=== PATIENT | female | born 1955 | race Caucasian/White ===

== ENCOUNTER → 2017-10-26 | Outpatient (CLI) | payer OTHER, MEDICARE ==
--- NOTE | 2017-10-28 06:44 | MM ---
Reason for exam: screening (asymptomatic). Last mammogram was performed 3 years and 3 months ago. History: Patient is postmenopausal. Benign US right guided VAD of the right breast, November 08, 2009. Took estrogen for 2 years. Physical Findings: A clinical breast exam by your physician is recommended on an annual basis and results should be correlated with mammographic findings. MG 3D Screening Mammo W/Cad Bilateral CC and MLO view(s) were taken. Prior study comparison: July 12, 2014, bilateral MG screening mammo w CAD. July 15, 2012, bilateral digital screening mammo w/CAD. There are scattered fibroglandular densities. There are oval, circumscribed masses in the left lower inner quadrant stable back to 2013. No suspicious abnormality. No significant changes when compared with prior studies. ASSESSMENT: Benign, BI-RAD 2 RECOMMENDATION: Routine screening mammogram of both breasts in 1 year.
== END | disposition home or self-care (01) ==
LOC: RADMAMWWP 14:34
PROVIDERS: ATTEND Family Medicine
DX: Z12.31 Encounter for screening mammogram for malignant neoplasm of breast (principal)
CPT/HCPCS: 77063; 77067

== ENCOUNTER 2018-05-07 10:24 | Emergency (ER) | payer OTHER, MEDICARE ==
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
--- NOTE | 2018-05-07 12:06 | XR ---
EXAMINATION TYPE: XR chest 1V DATE OF EXAM: 05/07/2018 COMPARISON: 09/12/2014 HISTORY: Chest pain TECHNIQUE: Single frontal view of the chest is obtained. FINDINGS: There is no focal air space opacity, pleural effusion, or pneumothorax seen. The cardiac silhouette size is within normal limits. The osseous structures are intact. Compression deformity s een on the prior exam of 2013 and the upper thoracic spine are not well visualized on this frontal vi ew only. Moderate multilevel degenerative changes of the thoracic spine are partially visualized. IMPRESSION: No acute cardiopulmonary process.
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
[2018-05-07 13:00] VITALS: BP 156/67; PULSE 64; RESP 15; TEMP 97.9
== END 2018-05-07 13:00 | disposition home or self-care (01) ==
LOC: EC 10:24
DX: S16.1XXA Strain of muscle, fascia and tendon at neck level, initial encounter (principal); S09.90XA Unspecified injury of head, initial encounter; M25.512 Pain in left shoulder; M79.7 Fibromyalgia; K21.9 Gastro-esophageal reflux disease without esophagitis; E78.5 Hyperlipidemia, unspecified; I10 Essential (primary) hypertension; M19.90 Unspecified osteoarthritis, unspecified site; F41.9 Anxiety disorder, unspecified; Z79.899 Other long term (current) drug therapy; V89.2XXA Person injured in unspecified motor-vehicle accident, traffic, initial encounter; Y92.410 Unspecified street and highway as the place of occurrence of the external cause
CPT/HCPCS: 70450; 71045; 72125; 99284

== ENCOUNTER 2018-05-09 20:50 | Emergency (ER) | payer MEDICARE, OTHER ==
[2018-05-09] MEDS ORDERED: fentaNYL (PF) 50 MCG/ML 2 ML AMP IV STA (21:20)
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
[2018-05-09 21:57] LABS: Basophils % (A) 1 %; Eosinophils # (A) 0.3 k/uL (0-0.7); Eosinophils % (A) 4 %; HCT 37.7 % (34.0-46.0); Lymphocytes # (A) 1.4 k/uL (1.0-4.8); Lymphocytes % (A) 20 %; MCH 25.4 pg (25.0-35.0); MCHC 31.8 g/dL (31.0-37.0); MCV 79.8 fL (80.0-100.0); Mean Platelet Volume 6.7; Monocytes # (A) 0.5 k/uL (0-1.0); Monocytes % (A) 7 %; Neutrophils # (A) 4.8 k/uL (1.3-7.7); Neutrophils % (A) 67 %; Platelet Count 293 k/uL (150-450); RBC 4.72 m/uL (3.80-5.40); RDW 14.1 % (11.5-15.5); WBC 7.2 k/uL (3.8-10.6)
[2018-05-09 22:07] LABS: ALT 32 U/L (9-52); AST 26 U/L (14-36); Albumin 4.2 g/dL (3.5-5.0); Alkaline Phosphatase 98 U/L (38-126); Anion Gap 7 mmol/L; Blood Urea Nitrogen 16 mg/dL (7-17); Calcium 9.4 mg/dL (8.4-10.2); Carbon Dioxide 24 mmol/L (22-30); Chloride 108 mmol/L (98-107); Glucose 98 mg/dL (74-99); Potassium 4.3 mmol/L (3.5-5.1); Sodium 139 mmol/L (137-145); Total Bilirubin 0.2 mg/dL (0.2-1.3); Total Protein 6.6 g/dL (6.3-8.2)
[2018-05-09 22:15] LABS: Creatine Kinase 72 U/L (30-135)
--- NOTE | 2018-05-09 22:15 | XR ---
EXAMINATION TYPE: XR chest 2V DATE OF EXAM: 05/09/2018 COMPARISON: Chest radiograph 05/07/2018 HISTORY: Cough TECHNIQUE: Frontal and lateral views of the chest are obtained. FINDINGS: There is no focal air space opacity, pleural effusion, or pneumothorax seen. The cardiac silhouette size is within normal limits. The osseous structures are unchanged. Exaggerated kyphosis of the thoracic spine with multiple compression deformities are stable. IMPRESSION: No acute cardiopulmonary process and no significant interval change.
--- NOTE | 2018-05-09 22:19 | XR ---
EXAMINATION TYPE: XR wrist complete RT DATE OF EXAM: 05/09/2018 COMPARISON: NONE HISTORY: Pain after falling TECHNIQUE: 4 views FINDINGS: There is impacted comminuted transverse fracture of the distal radial metaphysis. There is no dislocation. There is soft tissue swelling around the wrist joint. There is moderate osteoarthriti s at the first carpometacarpal joint. IMPRESSION: Acute impacted distal radius fracture.
[2018-05-09 22:28] LABS: Creatine Kinase MB 1.1 ng/mL (0.0-2.4); Troponin I <0.012 ng/mL (0.000-0.034)
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
[2018-05-10 00:04] LABS: Appearance,Urine Clear (Clear); Bilirubin,Urine Negative (Negative); Blood,Urine Negative (Negative); Color,Urine Colorless; Glucose,Urine (UA) Negative (Negative); Ketones,Urine Negative (Negative); Leukocyte Esterase,Urine Moderate (Negative); Mucus,Urine Rare /hpf; Nitrite,Urine Negative (Negative); Protein,Urine Negative (Negative); Specific Gravity,Urine 1.007 (1.001-1.035); Squamous Epithelial Cell,Urine <1 /hpf (0-4); Urobilinogen,Urine <2.0 mg/dL (<2.0); WBC,Urine 2 /hpf (0-5)
[2018-05-10 00:12] VITALS: BP 133/60; PULSE 68; RESP 18; TEMP 97.5
--- NOTE | 2018-05-12 03:54 | CDI ---
Documentation Clarification OP Dear Dr. Дмитрий Cheney Please provide type of splint. Thank you, Stephie Barry Shank Cutter If you have any questions, please contact Yardmaster at [phone] [facility]
== END 2018-05-10 00:21 | disposition home or self-care (01) ==
LOC: EC 20:50
DX: S62.101A Fracture of unspecified carpal bone, right wrist, initial encounter for closed fracture (principal); R40.2412 Glasgow coma scale score 13-15, at arrival to emergency department; M79.7 Fibromyalgia; K21.9 Gastro-esophageal reflux disease without esophagitis; E78.5 Hyperlipidemia, unspecified; I10 Essential (primary) hypertension; M19.90 Unspecified osteoarthritis, unspecified site; F41.9 Anxiety disorder, unspecified; Z79.1 Long term (current) use of non-steroidal anti-inflammatories (NSAID); Z79.899 Other long term (current) drug therapy; Z53.29 Procedure and treatment not carried out because of patient's decision for other reasons; W10.9XXA Fall (on) (from) unspecified stairs and steps, initial encounter; Y93.01 Activity, walking, marching and hiking; Y92.009 Unspecified place in unspecified non-institutional (private) residence as the place of occurrence of the external cause
CPT/HCPCS: 99284 ×2; 29125 ×2; 96374 ×2; 36415; 93005; 80053; 82550; 82553; 83735; 84484; 85025; 81001; 73110; 71046; 70450; J3010

== ENCOUNTER → 2023-01-27 | Outpatient (CLI) | payer MEDICARE ==
--- NOTE | 2023-01-28 15:00 | MM ---
Reason for Exam: Screening (asymptomatic). Last mammogram was performed 5 year(s) and 3 month(s) ago. Patient History: Menarche at age 12. First Full-Term at age 20. Left ovary removed at age 44. Right ovary removed at age 44. Hysterectomy at age 44. Postmenopausal. Patient used Estrogen for 2 years. 11/08/2009, Benign Core Biopsy on the right side. Risk Values: [place] 5 year model risk: 1.8%. NCI Lifetime model risk: 5.6%. Prior Study Comparison: 07/15/2012 Bilateral Screening Mammogram, [facility]. 07/12/2014 Bilateral Screening Mammogram, [facility]. 10/26/2017 Bilateral Screening Mammogram, [facility]. Tissue Density: There are scattered fibroglandular densities. Findings: Analyzed By CAD. Pattern appears symmetrical and stable. Core markers within the right breast. No significant interval changes are evident No suspicious groups of microcalcifications, spiculated or lobular masses, architectural distortion or other secondary signs of malignancy are mammographically apparent. Overall Assessment: Benign, BI-RAD 2 Management: Screening Mammogram of both breasts in 1 year. A negative mammogram report should not preclude additional follow up of suspicious palpable abnormalities. Patient should continue monthly self breast exam. A clinical breast exam by your physician is recommended on an annual basis and results should be correlated with mammographic findings. Electronically signed and approved by: Keo Vivas D.O. Radiologis
== END | disposition home or self-care (01) ==
LOC: RADMAMWWP 13:04
PROVIDERS: ATTEND Family Medicine
DX: Z12.31 Encounter for screening mammogram for malignant neoplasm of breast (principal); R07.9 Chest pain, unspecified; R06.09 Other forms of dyspnea; Z78.0 Asymptomatic menopausal state
CPT/HCPCS: 77063; 77067

== ENCOUNTER 2023-04-10 12:53 | Inpatient (IN) | payer MEDICARE ==
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
[2023-04-10 14:23] LABS: Basophils % (A) 1 %; Eosinophils # (A) 0.2 k/uL (0-0.7); Eosinophils % (A) 3 %; HCT 44.1 % (34.0-46.0); HGB 14.3 gm/dL (11.4-16.0); Lymphocytes # (A) 1.4 k/uL (1.0-4.8); Lymphocytes % (A) 22 %; MCH 27.7 pg (25.0-35.0); MCHC 32.5 g/dL (31.0-37.0); MCV 85.2 fL (80.0-100.0); Mean Platelet Volume 7.7; Monocytes # (A) 0.4 k/uL (0-1.0); Monocytes % (A) 7 %; Neutrophils # (A) 4.2 k/uL (1.3-7.7); Neutrophils % (A) 67 %; Platelet Count 304 k/uL (150-450); RBC 5.17 m/uL (3.80-5.40); WBC 6.3 k/uL (3.8-10.6)
[2023-04-10 14:30] LABS: INR 0.9 (<1.2); Partial Thromboplastin Time 23.5 sec (22.0-30.0); Prothrombin Time 9.9 sec (9.0-12.0)
--- NOTE | 2023-04-10 14:39 | XR ---
EXAMINATION TYPE: XR chest 2V DATE OF EXAM: 04/10/2023 COMPARISON: Chest x-ray May 09, 2018 HISTORY: AMS and weakness. TECHNIQUE: Frontal and lateral views of the chest are obtained. FINDINGS: There is some chronic parenchymal change without suspicious focal air space opacity, pleur al effusion, or pneumothorax seen. The cardiac silhouette size is within normal limits. The osseou s structures are demineralized. Exaggerated thoracic kyphosis is redemonstrated. IMPRESSION: No acute process. No significant change from prior.
[2023-04-10 14:43] LABS: ALT 31 U/L (4-34); AST 37 U/L (14-36); African American GFR (CKD) >90 (>60 ml/min/1.73 sqM); Albumin 4.7 g/dL (3.5-5.0); Alkaline Phosphatase 106 U/L (38-126); Anion Gap 9 mmol/L; Blood Urea Nitrogen 11 mg/dL (7-17); Calcium 9.5 mg/dL (8.4-10.2); Carbon Dioxide 25 mmol/L (22-30); Chloride 104 mmol/L (98-107); Creatine Kinase 95 U/L (30-135); Glucose 148 mg/dL (74-99); Non-African American GFR(CKD) >90 (>60 ml/min/1.73 sqM); Potassium 4.1 mmol/L (3.5-5.1); Sodium 138 mmol/L (137-145); Total Bilirubin 0.7 mg/dL (0.2-1.3); Total Protein 7.5 g/dL (6.3-8.2)
[2023-04-10] MEDS ORDERED: METOCLOPRAMIDE 5 MG/ML 2 ML VIAL IVP STA (14:49)
[2023-04-10] MEDS ORDERED: diphenhydrAMINE 50 MG/ML 1 ML VIAL IVP STA (14:49)
--- NOTE | 2023-04-10 15:16 | CT ---
EXAMINATION TYPE: CT brain wo con DATE OF EXAM: 04/10/2023 COMPARISON: 05/09/2018 INDICATION: Left sided arm numbness, vision changes and headache x3 days. DLP: 1146.6 mGycm, Automated exposure control for dose reduction was used. CONTRAST: None CT of the brain is performed utilizing 3 mm thick sections through the posterior fossa and 3 mm thick sections through the remaining calvarium. Study is performed within 24 hours of arrival to the hosp ital. No abnormal hyperdensity is present to suggest an acute intracranial hemorrhage. No mass lesion is evident. There is hypodensity adjacent to the occipital horn of the right lateral ventricle within the medial aspect of the right occipital lobe. Findings could be compatible with an acute to subacute infarct. R nandini was called to the emergency room by Dr. Vivas by telephone at the time of interpretation. Ventricles and sulci are prominent for the patient age. Geminal plate and ambient cistern are patent. No midline shift is evident. No temporal horn dilatation is evident. Paranasal sinuses and mastoid air cells within the [id number] are clear. IMPRESSIONS: 1. Acute medial right occipital lobe infarct.
--- NOTE | 2023-04-10 15:25 | CT ---
EXAMINATION TYPE: CT angio head neck DATE OF EXAM: 04/10/2023 HISTORY: Left sided arm numbness, vision changes and headache x3 days. COMPARISON: None CT DLP: 433.9 mGycm. Automated Exposure Control for Dose Reduction was Utilized. TECHNIQUE: CTA scan of the neck is performed with IV Contrast, patient injected with 65ml mL of Isov ue 370, axial images are obtained, coronal and sagittal reformatted images are reviewed. Three-D ewelina nstructed images are created on an independent workstation and reviewed. Source images are reviewed. FINDINGS: Carotid/Vascular Structures: There is a three-vessel arch. Left vertebral artery is dominant. Interna l carotid arteries are patent to the skull base. Vertebral arteries are patent to the skull base. Fabian cification is at the carotid bifurcations without significant flow-limiting stenosis. Cervical of [place]: Vertebral basilar system appears normal. Posterior cerebral vasculature is unrema rkable. No abrupt cut off of vessels to the right occipital lobe are identified. Left bifurcate viola lly into A1 and M1 segments. Right A1 segment is not identified on reconstructed images. Right A1 seg ment is not identified on source images. A2 segments are normal. The anterior communicating artery is patent. Posterior communicating arteries are not identified. IMPRESSION: 1. No flow-limiting stenosis bilateral carotid bifurcations. 2. Normal variation in the kiana of [place]. The right A1 segment is absent. 3. No abrupt cut off to the right occipital lobe is identified. NASCET criteria was used in interpretation of this exam?
[2023-04-10] MEDS ORDERED: ATORVASTATIN 80 MG TAB PO STA (15:43)
[2023-04-10] MEDS ORDERED: ASPIRIN 325 MG TAB PO STA (15:43)
[2023-04-10 17:04] LABS: Appearance,Urine Clear (Clear); Bilirubin,Urine Negative (Negative); Blood,Urine Negative (Negative); Color,Urine Light Yellow; Glucose,Urine (UA) Negative (Negative); Ketones,Urine Negative (Negative); Leukocyte Esterase,Urine Negative (Negative); Nitrite,Urine Negative (Negative); PH, Urine 6.5 (5.0-8.0); Protein,Urine Negative (Negative); Urobilinogen,Urine <2.0 mg/dL (<2.0)
[2023-04-10 17:22] LABS: Specific Gravity,Urine 1.049 (1.001-1.035)
[2023-04-10] MEDS: CLOPIDOGREL 75 MG TAB PO SCH (20:34)
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
[2023-04-10] MEDS: HYDROcodone/APAP 10-325MG 1 EACH TAB PO PRN (21:17)
[2023-04-10] MEDS: GABAPENTIN 300 MG CAP PO SCH (21:17)
[2023-04-10] MEDS: CYCLOBENZAPRINE 10 MG TAB PO SCH (21:24)
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
[2023-04-11] MEDS: ATORVASTATIN 40 MG TAB PO SCH (10:05)
[2023-04-11] MEDS: GABAPENTIN 300 MG CAP PO SCH ×3 (10:05→21:02)
[2023-04-11] MEDS: CLOPIDOGREL 75 MG TAB PO SCH (10:05)
[2023-04-11] MEDS: amLODIPine 5 MG TAB PO SCH (10:05)
[2023-04-11] MEDS: ASPIRIN 325 MG TAB PO SCH (10:05)
[2023-04-11] MEDS: CYANOCOBALAMIN 500 MCG TAB PO SCH (10:05)
[2023-04-11] MEDS: LORATADINE 10 MG TAB PO SCH (10:06)
[2023-04-11] MEDS: MONTELUKAST 10 MG TAB PO SCH (10:06)
[2023-04-11] MEDS: HYDROcodone/APAP 10-325MG 1 EACH TAB PO PRN ×3 (10:06→23:20)
[2023-04-11 12:17] LABS: Chol/HDL Ratio 3.97 Ratio; LDL Cholesterol,Calculated 121.9 mg/dL (0.0-131.0)
--- NOTE | 2023-04-11 12:43 | CA ---
Transthoracic Echo Report Name: Dorie Joseph Age: 68 Gender: F : 1955 Exam Date: 04/11/2023 08:50 Exam Location: [facility] Ht (in): 61 Wt (lb): 168 Ordering Physician: Prabha Gan MD Attending/Referring Phys: Malik Armando;[id number] Social Services Designee Dinah Valdovinos RDCS Procedure CPT: Indications: acute CVA Cardiac Hx: Technical Quality: Good Contrast 1: Total Dose (mL): Contrast 2: Total Dose (mL): MEASUREMENTS (Male / Female) Normal Values 2D ECHO LV Diastolic Diameter PLAX 4.3 cm 4.2 - 5.9 / 3.9 - 5.3 cm LV Systolic Diameter PLAX 3.0 cm IVS Diastolic Thickness 1.0 cm 0.6 - 1.0 / 0.6 - 0.9 cm LVPW Diastolic Thickness 1.0 cm 0.6 - 1.0 / 0.6 - 0.9 cm LV Relative Wall Thickness 0.5 RV Internal Dim ED PLAX 2.9 cm LA Systolic Diameter LX 3.3 cm 3.0 - 4.0 / 2.7 - 3.8 cm LA Volume 51.4 cm??? 18 - 58 / 22 - 52 cm??? M-MODE Aortic Root Diameter MM 2.9 cm MV E Point Septal Separation 0.5 cm AV Cusp Separation MM 2.0 cm DOPPLER AV Peak Velocity 139.7 cm/s AV Peak Gradient 7.8 mmHg MV E' Velocity 7.3 cm/s TR Peak Velocity 241.4 cm/s TR Peak Gradient 23.3 mmHg Right Ventricular Systolic Press 28.3 mmHg FINDINGS Left Ventricle Left ventricular ejection fraction is estimated at 60-65 %. Left ventricular cavity size normal. Mildly increased septal wall thickness. Mildly increased posterior wall thickness. Right Ventricle Normal right ventricular size and function. Right ventricular systolic pressure within normal limits. Right Atrium Normal right atrial size. Left Atrium No evidence for an atrial septal defect. Normal left atrial size. Negative saline bubbles study Mitral Valve Structurally normal mitral valve. No mitral stenosis, regurgitation or prolapse. Aortic Valve Trileaflet aortic valve. No aortic valve stenosis or regurgitation. Tricuspid Valve Structurally normal tricuspid valve. Mild tricuspid regurgitation. Pulmonic Valve Pulmonic valve not well visualized. No pulmonic regurgitation. Pericardium Normal pericardium. No pericardial effusion. Aorta Normal size aortic root and proximal ascending aorta. CONCLUSIONS Normal LV systolic function Negative saline contrast study Previewed by: Dr. Tam Delcid MD (Electronically Signed) Final Date: 11 April 2023 12:42
[2023-04-11] MEDS: VENLAFAXINE HCL ER 150 MG CAP PO SCH (12:52)
--- NOTE | 2023-04-11 13:08 | P.PN ---
Subjective This is a pleasant 68 years old female with multiple medical history including COPD, Fibromyalgia, GERD/Reflux, Hyperlipidemia, Hypertension, Osteoarthritis , Anxiety Patient states she came because she had weakness in her left hand which just happened last Thursday about 4 days ago when she woke up her left hand was as she described and her left foot was numb lasted about 45 minutes and then went away, this was associated with blurry vision especially on the left side and headache. After 45 minutes the weakness and numbness in her left hand and foot resolved completely however a persistent about 5/10 in severity when she came in today compared to 10/10 in severity 4 days ago. His nonspecific and quality starts on the frontal part of the head and moves to the back, the pain is more towards the left side. Also she has pain and tenderness in both temporal areas more on the left side. Also she had some floaters around her left eye Vitals are stable and patient is afebrile She has unremarkable CBC, INR, BMP, liver enzymes. Except for mildly elevated glucose 148. EKG: Normal sinus rhythm at [address]-T changes CT of the brain: No acute process CTA of the brain"no flow-limiting stenosis or other significant abnormality In the emergency room patient received aspirin 325 mg, Lipitor and admitted with neurology consult We checked ESR was normal at 8 which goes against temporal arteritis. 04/11/2023 Patient today feels better, she stated that or her symptoms resolved except the vision difficulty in her left eye, she says that she cannot see or they're black spots on the left side of her left eye suspicious for homonymous hemianopsia. She denies headache, rule out temporal area tenderness. No more weakness or numbness in her left side. She is hemodynamically stable. Echocardiogram showing ejection fraction of 60-[address] of the brain showing acute medial right occipital lobe infarct, no need for MRI per neurologist Is recommending dual antiplatelet therapy 21 days then stop Plavix and continue aspirin Objective - Vital Signs Vital signs: Vital Signs Temp 97.7 F 04/11/23 08:10 Pulse 76 04/11/23 08:10 Resp 17 04/11/23 08:10 BP 153/67 04/11/23 08:10 Pulse Ox 97 04/11/23 12:20 FiO2 Intake & Output 04/10/23 04/11/23 04/11/23 18:59 06:59 18:59 Intake Total 540 180 Balance 540 180 Weight 76.204 kg Intake: Oral 540 180 Other: Voiding Method Toilet Toilet # Voids 1 - Exam GENERAL: The patient is alert and oriented x3, not in any acute distress. Well developed, well nourished. HEENT: Pupils are round and equally reacting to light. EOMI. No scleral icterus. No conjunctival pallor. Normocephalic, atraumatic. No pharyngeal erythema. No thyromegaly. CARDIOVASCULAR: S1 and S2 present. No murmurs, rubs, or gallops. PULMONARY: Chest is clear to auscultation, no wheezing , no crackles. ABDOMEN: Soft, nontender, nondistended, normoactive bowel sounds. No palpable organomegaly. MUSCULOSKELETAL: No joint swelling or deformity. EXTREMITIES: No cyanosis, clubbing, or pedal edema. NEUROLOGICAL: Gross neurological examination did not reveal any focal deficits. SKIN: No rashes. no petechiae. - Labs CBC & Chem 7: 04/10/23 14:04 04/10/23 14:04 Labs: Abnormal Lab Results - Last 24 Hours (Table) 04/10/23 04/10/23 04/10/23 Range/Units 14:04 14:04 14:04 Glucose 148 H (74-99) mg/dL AST 37 H (14-36) U/L Triglycerides 161.00 H (0.00-149.00) mg/dL Cholesterol 206.00 H (0.00-200.00) mg/dL Ur Specific [place] 1.049 H (1.001-1.035) Assessment and Plan Assessment: Left hand weakness and left foot numbness suspicious for acute stroke/TIA Left homonymous hemianopsia. Diabetes mellitus Hypertension Hyperlipidemia History of osteoarthritis Hypothyroidism Plan: Continue with antiplatelet therapy dual antiplatelet therapy 21 day and then stop Plavix and continue with aspirin Consulting neurology Carotid duplex Ophthalmology consult (ophthalmology service and this facilitated this weekend, patient informed and offered to transfer to [facility] she declines and she said she will follow up as an outpatient, contact information was provided and her discharge summary) Labs and medication were reviewed.. Continue same treatment. Continue with symptomatic treatment. Resume home medication. Monitor lytes and vitals. DVT and GI prophylaxis. Further recommendations depends on the clinical course of the patient DVT prophylaxis: Subcutaneous heparin GI Prophylaxis: Pepcid PT/OT: Pending Prognosis is guarded
[2023-04-11] MEDS: methocarbamoL 750 MG TAB PO SCH ×2 (17:39→21:02)
--- NOTE | 2023-04-11 20:11 | P.PN ---
Subjective Progress Note Date: 04/11/23 Patient was seen for a follow-up. Patient states she is doing much better. No new focal symptoms. Objective - Vital Signs Vital signs: Vital Signs Temp 97.7 F 04/11/23 08:10 Pulse 76 04/11/23 08:10 Resp 17 04/11/23 08:10 BP 153/67 04/11/23 08:10 Pulse Ox 97 04/11/23 12:20 FiO2 Intake & Output 04/10/23 04/11/23 04/11/23 18:59 06:59 18:59 Intake Total 540 180 Balance 540 180 Weight 76.204 kg Intake: Oral 540 180 Other: Voiding Method Toilet Toilet # Voids 1 - Exam Mental status, speech and language functions are normal. Cranial nerves significant for homonymous visual field defect, involving left upper quadrant. Rest of the examination is completely normal. - Labs CBC & Chem 7: 04/10/23 14:04 04/10/23 14:04 Labs: Abnormal Lab Results - Last 24 Hours (Table) 04/10/23 04/10/23 04/10/23 Range/Units 14:04 14:04 14:04 Glucose 148 H (74-99) mg/dL AST 37 H (14-36) U/L Triglycerides 161.00 H (0.00-149.00) mg/dL Cholesterol 206.00 H (0.00-200.00) mg/dL Ur Specific [place] 1.049 H (1.001-1.035) Assessment and Plan Assessment: * Acute ischemic stroke right occipital lobe, with homonymous visual field defect involving the left upper quadrant. Event appears embolic in nature. * Hypertension * Hyperlipidemia * Asthma Plan: * Patient has presented with subacute stroke. Patient was not taking any antiplatelet medication at home. Patient has received aspirin 325 mg in the ER. Patient will be placed on dual antiplatelet medication for 21 days, then stop Plavix and continue aspirin indefinitely. * 2-D echo revealed normal left ventricular systolic function with EF 60-65%. Mildly increased septal wall thickness. Left atrial size normal. No evidence for an atrial septal defect. Negative saline bubble study. * CTA head and neck showed: No flow-limiting stenosis bilateral carotid bifurcations. Normal variation in the [place]. The right A1 segment is absent. No abrupt cutoff to the right occipital lobe. * Fasting a.m. lipid panel cholesterol 206, LDL 121, HDL 51 and triglycerides 161. Patient does take Lipitor 80 mg at bedtime daily. Continue Lipitor. May consider rechecking lipid panel as outpatient. If the LDL is still above 100, would suggest switching to alternate anti-dyslipidemic agent. * Hemoglobin A1c 5.8 * Optimize control blood pressure to target < 130/80. * Telemetry monitoring so far showing sinus rhythm with sinus bradycardia. No other arrhythmia. * Event monitor for 30 days to rule out arrhythmia. * Patient recommended for no driving, until cleared by auger press operator, related to her visual field defect. * DVT prophylaxis: Heparin 5000 units subcu every 12 hours * Neurology clear with above recommendations.
[2023-04-11] MEDS: CYCLOBENZAPRINE 10 MG TAB PO SCH (21:02)
[2023-04-11] MEDS: HEPARIN SODIUM,PORCINE/PF 5,000 UNIT/0.5 ML SYRINGE SQ SCH (21:02)
[2023-04-12 08:12] LABS: Basophils % (A) 1 %; Eosinophils # (A) 0.2 k/uL (0-0.7); Eosinophils % (A) 3 %; HCT 42.5 % (34.0-46.0); HGB 13.6 gm/dL (11.4-16.0); Lymphocytes # (A) 1.7 k/uL (1.0-4.8); Lymphocytes % (A) 28 %; MCH 27.3 pg (25.0-35.0); MCV 85.5 fL (80.0-100.0); Monocytes # (A) 0.5 k/uL (0-1.0); Monocytes % (A) 8 %; Neutrophils # (A) 3.5 k/uL (1.3-7.7); Neutrophils % (A) 58 %; Platelet Count 242 k/uL (150-450); RBC 4.97 m/uL (3.80-5.40); RDW 13.8 % (11.5-15.5)
[2023-04-12 08:19] LABS: African American GFR (CKD) >90 (>60 ml/min/1.73 sqM); Anion Gap 8 mmol/L; Blood Urea Nitrogen 14 mg/dL (7-17); Calcium 9.3 mg/dL (8.4-10.2); Carbon Dioxide 27 mmol/L (22-30); Chloride 103 mmol/L (98-107); Glucose 90 mg/dL (74-99); Non-African American GFR(CKD) >90 (>60 ml/min/1.73 sqM); Potassium 4.3 mmol/L (3.5-5.1); Sodium 138 mmol/L (137-145)
[2023-04-12] MEDS: CYANOCOBALAMIN 500 MCG TAB PO SCH (09:11)
[2023-04-12] MEDS: LORATADINE 10 MG TAB PO SCH (09:11)
[2023-04-12] MEDS: amLODIPine 5 MG TAB PO SCH (09:11)
[2023-04-12] MEDS: HYDROcodone/APAP 10-325MG 1 EACH TAB PO PRN (09:11)
[2023-04-12] MEDS: MONTELUKAST 10 MG TAB PO SCH (09:11)
[2023-04-12] MEDS: ASPIRIN 325 MG TAB PO SCH (09:11)
[2023-04-12] MEDS: CLOPIDOGREL 75 MG TAB PO SCH (09:11)
[2023-04-12] MEDS: VENLAFAXINE HCL ER 150 MG CAP PO SCH (09:11)
[2023-04-12] MEDS: ATORVASTATIN 40 MG TAB PO SCH (09:11)
[2023-04-12] MEDS: methocarbamoL 750 MG TAB PO SCH ×2 (09:11→15:26)
[2023-04-12] MEDS: HEPARIN SODIUM,PORCINE/PF 5,000 UNIT/0.5 ML SYRINGE SQ SCH (09:12)
[2023-04-12] MEDS: GABAPENTIN 300 MG CAP PO SCH ×2 (09:12→15:26)
[2023-04-12 10:16] VITALS: TEMP 98.1
--- NOTE | 2023-04-12 13:20 | P.PN ---
Subjective Progress Note Date: 04/12/23 Patient was seen for a follow-up. Patient states she is doing much better. No new focal symptoms. Still has visual symptoms. Objective - Vital Signs Vital signs: Vital Signs Temp 98.1 F 04/12/23 09:10 Pulse 76 04/12/23 11:50 Resp 18 04/12/23 11:50 BP 156/97 04/12/23 11:50 Pulse Ox 96 04/12/23 11:50 FiO2 Intake & Output 04/11/23 04/12/23 04/12/23 18:59 06:59 18:59 Intake Total 1080 540 180 Balance 1080 540 180 Intake: Oral 1080 540 180 Other: Voiding Method Toilet Toilet Toilet # Voids 3 1 - Exam Mental status, speech and language functions are normal. Cranial nerves significant for homonymous visual field defect, involving left upper quadrant. Rest of the examination is completely normal. - Labs CBC & Chem 7: 04/12/23 07:04 04/12/23 07:04 Assessment and Plan Assessment: * Acute ischemic stroke right occipital lobe, with homonymous visual field defect involving the left upper quadrant. Event appears embolic in nature. * Hypertension * Hyperlipidemia * Asthma Plan: * Patient has presented with subacute stroke. Patient was not taking any antiplatelet medication at home. Patient has received aspirin 325 mg in the ER. Patient will be placed on dual antiplatelet medication for 21 days, then stop Plavix and continue aspirin indefinitely. * 2-D echo revealed normal left ventricular systolic function with EF 60-65%. Mildly increased septal wall thickness. Left atrial size normal. No evidence for an atrial septal defect. Negative saline bubble study. * CTA head and neck showed: No flow-limiting stenosis bilateral carotid bifurcations. Normal variation in the [place]. The right A1 segment is absent. No abrupt cutoff to the right occipital lobe. * Fasting a.m. lipid panel cholesterol 206, LDL 121, HDL 51 and triglycerides 161. Patient does take Lipitor 80 mg at bedtime daily. Continue Lipitor. May consider rechecking lipid panel as outpatient. If the LDL is still above 100, would suggest switching to alternate anti-dyslipidemic agent. * Hemoglobin A1c 5.8 * Optimize control blood pressure to target < 130/80. * Telemetry monitoring so far showing sinus rhythm with sinus bradycardia. No other arrhythmia. * Event monitor for 30 days to rule out arrhythmia. * Patient recommended for no driving, until cleared by baggage inspector, related to her visual field defect. * DVT prophylaxis: Heparin 5000 units subcu every 12 hours * Neurology clear with above recommendations.
[2023-04-12 16:43] VITALS: BP 133/73; PULSE 78; RESP 17
--- NOTE | 2023-04-12 23:11 | P.DS ---
Providers Date of admission: 04/10/23 15:43 Attending physician: Madhu Gupta MD Consults: 04/10/23 15:44 Consult Physician Urgent Consulting Provider: Prabha Gan Consult Reason/Comments: acute cva Do you want consulting provider notified?: Yes Primary care physician: Kalpana Kat Hospital Course: Diagnoses: Left hand weakness and left foot numbness secondary to for acute right occipital stroke/TIA seen on CT of the brain Left homonymous hemianopsia. Diabetes mellitus Hypertension Hyperlipidemia History of osteoarthritis Hypothyroidism Hospital course: This is a pleasant 68 years old female with multiple medical history including COPD, Fibromyalgia, GERD/Reflux, Hyperlipidemia, Hypertension, Osteoarthritis , Anxiety Patient states she came because she had weakness in her left hand which just happened last Thursday about 4 days ago when she woke up her left hand was as she described and her left foot was numb lasted about 45 minutes and then went away, this was associated with blurry vision especially on the left side and headache. After 45 minutes the weakness and numbness in her left hand and foot resolved completely.she stated that or her symptoms resolved except the vision difficulty in her left eye, she says that she cannot see or they're black spots on the left side of her left eye suspicious for homonymous hemianopsia. There was no ophthalmology service available in this facility, patient declined transfer to higher level of care, alternative the patient was instructed to follow up with serials librarian Dr. Levin was in 1-2 days after discharge and she verbalized understanding and acceptance. Patient denies any other new symptoms Patient was started on dual antiplatelet therapy of Plavix and aspirin for 21 days, then stop Plavix and continue with aspirin, patient verbalized understanding and acceptance. Prescription provided for the patient. Patient was cleared for discharge by neurologist Problems and management plan were discussed with the patient and he verbalized understanding and acceptance Patient was found stable and can be discharged home in guarded prognosis however he needs follow-up as an outpatient. Patient was instructed to follow up with PCP within one week and patient agrees This has ophthalmology as above patient was instructed to follow up with neurologist Dr. Jeronimo, Dr. Arcelia gale with 1-2 weeks and dimpling machine operator Dr. Delcid in 1 week and she verbalized understanding and acceptance to make appointments Physical exam Gen: patient is a AAOx3, no distress CVS: S1-S2, RRR, no murmur Lungs: B/L CTA, no wheezing Abdomen: soft, no distention, no tenderness, positive bowel sounds Extremity: no leg edema or induration Time spent more than 35 minutes Patient Condition at Discharge: Serious Plan - Discharge Summary Discharge Rx Participant: No New Discharge Prescriptions: New Clopidogrel [Plavix] 75 mg PO DAILY 21 Days #21 tab Aspirin 81 mg PO DAILY 30 Days #30 tab Continue Omeprazole 20 mg PO BID lisinopriL [Lisinopril] 10 mg PO DAILY Venlafaxine HCl [Venlafaxine HCl ER] 150 mg PO DAILY methocarbamoL [Robaxin-750] 750 mg PO TID HYDROcodone/APAP 10-325MG [[place] 10-325] 1 tab PO QID Gabapentin 600 mg PO TID amLODIPine [Norvasc] 5 mg PO DAILY Vitamin B-12(Unknown Dose) 1 tab PO DAILY Montelukast [Singulair] 10 mg PO DAILY Cyclobenzaprine [Flexeril] 10 mg PO HS Cholecalciferol (Vitamin D3) [Vitamin D3 (125 MCG = 5,000 IU)] 125 mcg PO DAILY Cetirizine HCl [Zyrtec] 10 mg PO DAILY Magnesium Oxide [Mag-Ox] 400 mg PO HS Atorvastatin [Lipitor] 80 mg PO HS #30 tab Discontinued Diclofenac Sodium [Voltaren] 75 mg PO BID Discharge Medication List Omeprazole 20 mg PO BID 09/04/14 [History] Venlafaxine HCl [Venlafaxine HCl ER] 150 mg PO DAILY 09/04/14 [History] lisinopriL [Lisinopril] 10 mg PO DAILY 09/04/14 [History] HYDROcodone/APAP 10-325MG [[place] 10-325] 1 tab PO QID 05/07/18 [History] methocarbamoL [Robaxin-750] 750 mg PO TID 05/07/18 [History] Cetirizine HCl [Zyrtec] 10 mg PO DAILY 04/10/23 [History] Cholecalciferol (Vitamin D3) [Vitamin D3 (125 MCG = 5,000 IU)] 125 mcg PO DAILY 04/10/23 [History] Cyclobenzaprine [Flexeril] 10 mg PO HS 04/10/23 [History] Gabapentin 600 mg PO TID 04/10/23 [History] Magnesium Oxide [Mag-Ox] 400 mg PO HS 04/10/23 [History] Montelukast [Singulair] 10 mg PO DAILY 04/10/23 [History] Vitamin B-12(Unknown Dose) 1 tab PO DAILY 04/10/23 [History] amLODIPine [Norvasc] 5 mg PO DAILY 04/10/23 [History] Aspirin 81 mg PO DAILY 30 Days #30 tab 04/12/23 [Rx] Atorvastatin [Lipitor] 80 mg PO HS #30 tab 04/12/23 [Rx] Clopidogrel [Plavix] 75 mg PO DAILY 21 Days #21 tab 04/12/23 [Rx] Follow up Appointment(s)/Referral(s): Solomon Bradley MD [STAFF PHYSICIAN] - 1 Week (Project Manager) Kalpana Kat DO [Primary Care Provider] - 1-2 days Tam Delcid MD [STAFF PHYSICIAN] - 1 Week (cardiolgosit for your event monitor ) Lorrie Paniagua MD [Medical Doctor] - 2 Weeks (neurologist ) Tho Jeronimo DO [STAFF PHYSICIAN] - 2 Weeks (neurologsit ) Activity/Diet/Wound Care/Special Instructions: you will be placed on dual antiplatelet medication (both asprin and plavix) for 21 days, then stop Plavix and continue aspirin indefinitely. we recommend Event monitor for 30 days to rule out arrhythmia. heart healthy diet activity is restricted till you see your doctor Discharge Disposition: HOME SELF-CARE
== END 2023-04-12 16:48 | disposition home or self-care (01) | DRG 65 ==
LOC: EC 12:53 → 3SCARD 15:43
PROVIDERS: ADMIT Internal Medicine; ATTEND Internal Medicine
DX: I63.9 Cerebral infarction, unspecified (principal); G81.94 Hemiplegia, unspecified affecting left nondominant side; H53.462 Homonymous bilateral field defects, left side; J44.9 Chronic obstructive pulmonary disease, unspecified; E11.9 Type 2 diabetes mellitus without complications; R29.701 NIHSS score 1; E03.9 Hypothyroidism, unspecified; M85.80 Other specified disorders of bone density and structure, unspecified site; E78.5 Hyperlipidemia, unspecified; F41.9 Anxiety disorder, unspecified; I10 Essential (primary) hypertension; G43.909 Migraine, unspecified, not intractable, without status migrainosus; I83.90 Asymptomatic varicose veins of unspecified lower extremity; K21.9 Gastro-esophageal reflux disease without esophagitis; M19.90 Unspecified osteoarthritis, unspecified site; M79.7 Fibromyalgia; Z79.1 Long term (current) use of non-steroidal anti-inflammatories (NSAID); Z79.899 Other long term (current) drug therapy; Z82.3 Family history of stroke
CPT/HCPCS: 36415; 70450; 70496; 70498; 71046; 80048; 80053; 80061; 81003; 82550; 83036; 83735; 84484; 85025; 85610; 85652; 85730; 93005; 93306; 94760; 96374; 96375; 99285

== ENCOUNTER 2023-05-15 09:01 | Day surgery (SDC) | payer MEDICARE ==
[2023-05-15] MEDS ORDERED: SODIUM CHLORIDE 0.9% 500 ML 500 ML IV ONE (09:27)
[2023-05-15 09:45] VITALS: RESP 16; TEMP 97.8
[2023-05-15] MEDS ORDERED: fentaNYL (PF) 50 MCG/ML 2 ML AMP ONE (09:53)
[2023-05-15] MEDS ORDERED: BENZOCAINE SPRAY 1 CAN MUCOUS MEM ONE (10:22)
[2023-05-15] MEDS ORDERED: MIDAZOLAM 2 MG/2 ML VIAL IVP ONE (10:22)
[2023-05-15] MEDS ORDERED: fentaNYL (PF) 50 MCG/ML 2 ML AMP IVP ONE (10:22)
--- NOTE | 2023-05-15 11:14 | ECHOT ---
TRANSESOPHAGEAL ECHOCARDIOGRAM INDICATION: Occipital stroke, rule out cardiac source of thromboembolic phenomenon. PROCEDURE NOTE: After obtaining informed consent, transesophageal echocardiogram was performed in left lateral position using an Omniplane probe. Local and IV sedation were obtained using 2 mg of Versed and 25 mcg of fentanyl. The patient received moderate conscious sedation. Total sedation time was 10 minutes. FINDINGS: 1. Interatrial septum. There is evidence of [id number] shunt by agitated saline contrast study. Interatrial septum appears aneurysmally dilated. Left atrium appears enlarged. Right atrium and right ventricle appear mildly enlarged. 2. Left ventricle has normal size and systolic function. There is mild mitral regurgitation noted. Aortic valve is free of stenosis or regurgitation. There is no intracardiac thrombus within the left atrial appendage, left atrium, right atrium, or right ventricle. CONCLUSIONS: 1. Evidence of [id number] shunt across the interatrial septum with aneurysmal interatrial septum. 2. Normal LV function. 3. No evidence of intracardiac thrombus. PLAN: Patient will need and would benefit from Amplatzer device closure of the PFO. I spoke to Dr. Rios. He is going to review the SERGO and schedule the procedure expeditiously. MMODL / IJN: [id number] /
[2023-05-15 12:07] VITALS: BP 147/63
[2023-05-15 12:09] VITALS: PULSE 70
== END 2023-05-15 11:59 | disposition home or self-care (01) ==
LOC: CATHCVL 09:01
PROVIDERS: ATTEND Internal Medicine Cardiovascular Disease
DX: I63.9 Cerebral infarction, unspecified (principal); I34.0 Nonrheumatic mitral (valve) insufficiency; I10 Essential (primary) hypertension; E78.5 Hyperlipidemia, unspecified; Z82.49 Family history of ischemic heart disease and other diseases of the circulatory system; Z79.82 Long term (current) use of aspirin; Z79.899 Other long term (current) drug therapy
CPT/HCPCS: 93312; 93320; 93325; J2250; J3010

== ENCOUNTER 2023-06-12 07:51 | Day surgery (SDC) | payer MEDICARE ==
[2023-06-08 12:52] VITALS: BMI 31.4
[~2023-06-12 07:51] MED LIST: ALPRAZolam 0.25 MG TAB PO PRN; ALPRAZolam 0.5 MG TAB PO PRN; ASPIRIN 325 MG TAB PO ONE; ATORVASTATIN 80 MG TAB PO ONE; HEPARIN SODIUM,PORCINE (1 ML) 2,500 UNIT in SODIUM CHLORIDE 0.9% 250 ML IRRIGATION PRN; HEPARIN SODIUM,PORCINE 10,000 UNIT in SODIUM CHLORIDE 0.9% 1,000 ML IRRIGATION PRN; NITROGLYCERIN SL TABS 0.4 MG TAB SUBLINGUAL PRN
[2023-06-12] MEDS ORDERED: SODIUM CHLORIDE 0.9% 1,000 ML IV ONE (08:25)
[2023-06-12] MEDS: SODIUM CHLORIDE 0.9% 1,000 ML in EMPTY BAG 1 BAG IV SCH ×2 (08:35→21:37)
[2023-06-12] MEDS ORDERED: HEPARIN SODIUM 1,000 UN/ML (10ML VL) ONE (09:34)
[2023-06-12] MEDS ORDERED: LIDOCAINE 1% INJ 10MG/ML (20 ML MDV) SQ ONE (09:50)
[2023-06-12] MEDS ORDERED: MIDAZOLAM 2 MG/2 ML VIAL IVP ONE (09:51)
[2023-06-12] MEDS ORDERED: HEPARIN SODIUM 1,000 UN/ML (10ML VL) IV ONE (09:55)
[2023-06-12] MEDS ORDERED: CLOPIDOGREL 75 MG TAB ONE (10:01)
[2023-06-12] MEDS ORDERED: CLOPIDOGREL 75 MG TAB PO ONE (10:03)
[2023-06-12] MEDS ORDERED: SODIUM CHLORIDE 0.9% 1,000 ML IV SCH (10:30)
--- NOTE | 2023-06-12 10:30 | P.PCN ---
Date of Procedure: 06/12/23 Operative Findings: PERCUTANEOUS CLOSURE OF FENESTRATED INTERATRIAL SEPTUM PERFORMING PHYSICIAN: Rian Rios MD, VI PROCEDURE PERFORMED: 1. Successful percutaneous closure PFO using 30 mm Amplatzer Occluder with an excellent results and without any residual shunt. 2. Intracardiac echocardiogram imaging. 3. Right atrial angiogram. 4. Ultrasound-guided access of the right common femoral vein 2 INDICATION: This is a 68-year-old female patient who sees Dr. Delcid regular basis was diagnosed recently with embolic stroke. She underwent transesophageal echocardiogram and that revealed patent foramen ovale with aneurysmal interatrial septum. APPROACH: Right common femoral vein 2 COMPLICATION: None. LEVEL OF SEDATION: Moderate with sedation length of 30 minutes. PROCEDURE DESCRIPTION: After obtaining informed consent, the patient was brought to the cardiac labor economics professor. The right common femoral vein was cannulated x2 using micropuncture technique under ultrasound guidance, the micropuncture wire passed easily, then I placed two 8-[place] sheath in the right groin. Subsequently I cannulated the left common femoral vein with the same technique and I placed an 8-[place] sheath there as well. At that point, anticoagulation was initiated using heparin and the patient was given a bolus of 4,000 units of heparin IV with continuous ACT monitoring throughout the procedure. After that, the intracardiac echocardiogram probe was advanced through one of the venous sheath all the way to the right atrium where we did interrogate the interatrial septum and identified the patent foramen ovale which was measured about 30 mm. Subsequently, I did cross the defect using 0.035 J-wire with the backup support of multipurpose catheter. The wire was advanced all the way to the left upper pulmonary vein and subsequently the catheter was advanced over the wire to the left upper pulmonary vein. The 0.035 J-wire was pulled out and then I advanced a merari wire. Subsequently, the multipurpose catheter was withdrawn out and the wire was left in the left upper pulmonary vein. After that, I did prep the Amplatzer PFO occluder under saline. The device was loaded into the roll over loader, which was attached to the sheath. Subsequently, I did exchange my 8-[place] sheath into the Shuttle sheath over a 0.035 merari wire. The sheath was advanced all the way under fluoroscopy guidance to the left atrium. Subsequently, the dilator of the sheath was withdrawn out along with the wire. After that, I did load the Amplatzer occluder under continuous saline flush to the sheath. The device was advanced all the way through the sheath were I did where I did deploy initially the left atrial occluder and then I pulled back the sheath and the left atrial occluder all the way to the interatrial septum and then I deployed the right atrial occluder after that. Before I released the device, I did interrogate the septum using ice images on multiple views. After I realized that the device was stable enough and in good position the device was released. Interrogation using ice was also performed after the device was released. By the end I did right atrial angiogram. The procedure was completed without any complication. POSTPROCEDURE MANAGEMENT: 1. Dual anti-platelet therapy. 2. An echo in 24 hours, in 1 week, in 4 weeks, as well as in 6 months.
[2023-06-12] MEDS ORDERED: IBUPROFEN 400 MG TAB PO STA (16:17)
[2023-06-12] MEDS ORDERED: HYDROcodone/APAP 10-325MG 1 EACH TAB PO PRN (19:34)
[2023-06-12] MEDS: PANTOPRAZOLE 40 MG TABLET PO SCH (20:24)
[2023-06-12] MEDS: methocarbamoL 750 MG TAB PO SCH (20:24)
[2023-06-12] MEDS ORDERED: CYCLOBENZAPRINE 10 MG TAB PO SCH (21:00)
[2023-06-13 03:09] VITALS: TEMP 97.9
[2023-06-13] MEDS: PANTOPRAZOLE 40 MG TABLET PO SCH (06:37)
--- NOTE | 2023-06-13 07:21 | XR ---
EXAMINATION TYPE: XR chest 2V DATE OF EXAM: 06/13/2023 6:50 AM COMPARISON: Chest radiographs from 04/10/2023 TECHNIQUE: XR chest 2V Frontal and lateral views of the chest. CLINICAL INDICATION:Female, 68 years old with history of ASD/PFO placement; FINDINGS: Lungs/Pleura: There is no evidence of pleural effusion, focal consolidation, or pneumothorax. Chroni c parenchymal change. Pulmonary vascularity: Unremarkable. Heart/mediastinum: Cardiomediastinal silhouette is unremarkable. Postsurgical changes from AST/PFO p lacement. Musculoskeletal: No acute osseous pathology. Chronic wedging of the midthoracic spine with exaggerate d thoracic kyphosis. IMPRESSION: Postsurgical changes from ASD/PFO placement. No pneumothorax.
[2023-06-13] MEDS: methocarbamoL 750 MG TAB PO SCH (08:22)
[2023-06-13 08:59] VITALS: BP 152/78; PULSE 82; RESP 18
[2023-06-13] MEDS ORDERED: VENLAFAXINE HCL ER 150 MG CAP PO SCH (09:00)
[2023-06-13] MEDS ORDERED: LORATADINE 10 MG TAB PO SCH (09:00)
[2023-06-13] MEDS ORDERED: CLOPIDOGREL 75 MG TAB PO SCH (09:00)
[2023-06-13] MEDS ORDERED: CYANOCOBALAMIN 500 MCG TAB PO SCH (09:00)
[2023-06-13] MEDS ORDERED: MAGNESIUM OXIDE 400 MG TAB PO SCH (09:00)
[2023-06-13] MEDS ORDERED: lisinopriL 10 MG TAB PO SCH (09:00)
[2023-06-13] MEDS ORDERED: CALCIUM CARB-VIT D 500 MG-5 MCG TAB PO SCH (09:00)
[2023-06-13] MEDS ORDERED: ASPIRIN 325 MG TAB PO SCH (09:00)
[2023-06-13] MEDS ORDERED: amLODIPine 5 MG TAB PO SCH (09:00)
--- NOTE | 2023-06-13 09:48 | P.DS ---
Providers Attending physician: Rian Rios Primary care physician: [facility] Course: The patient is a 68-year-old female patient was diagnosed recently was embolic stroke and was found to have patent formal of artery with aneurysmal interatrial septum. She was admitted to the hospital yesterday and underwent successful percutaneous closure of patent foramen ovale with a good results. The patient was seen and evaluated this morning. She is hemodynamically stable and she is asymptomatic. The right groin soft and nontender was no bruises. The EKG showed sinus mechanism. The chest x-ray showed no pneumothorax. The echo was reviewed and showed good and stable atrial septal occluder no pericardial effusion identified The patient is going to be discharged home on dual antiplatelet therapy and she will follow-up with Dr. Delcid in a few days Plan - Discharge Summary Discharge Rx Participant: No New Discharge Prescriptions: New Clopidogrel [Plavix] 75 mg PO DAILY #90 tablet Continue Omeprazole 20 mg PO BID lisinopriL [Lisinopril] 10 mg PO DAILY Venlafaxine HCl [Venlafaxine HCl ER] 150 mg PO DAILY methocarbamoL [Robaxin-750] 750 mg PO TID HYDROcodone/APAP 10-325MG [[place] 10-325] 1 tab PO QID PRN PRN Reason: Pain amLODIPine [Norvasc] 5 mg PO DAILY Cyanocobalamin (Vitamin B-12) [Vitamin B-12] 5,000 mcg PO DAILY #0 Aspirin 81 mg PO DAILY 30 Days #30 tab Calcium Carbonate/Vitamin D3 [Calcium 600 mg-D3 20 mcg (800 unit)] 2 each PO DAILY Cyclobenzaprine [Flexeril] 10 mg PO HS Atorvastatin [Lipitor] 80 mg PO HS #30 tab Magnesium Oxide [Magnesium] 500 mg PO DAILY Loratadine 10 mg PO DAILY Discharge Medication List Omeprazole 20 mg PO BID 09/04/14 [History] Venlafaxine HCl [Venlafaxine HCl ER] 150 mg PO DAILY 09/04/14 [History] lisinopriL [Lisinopril] 10 mg PO DAILY 09/04/14 [History] HYDROcodone/APAP 10-325MG [[place] 10-325] 1 tab PO QID PRN 05/07/18 [History] methocarbamoL [Robaxin-750] 750 mg PO TID 05/07/18 [History] Cyanocobalamin (Vitamin B-12) [Vitamin B-12] 5,000 mcg PO DAILY #0 04/10/23 [History] Cyclobenzaprine [Flexeril] 10 mg PO HS 04/10/23 [History] amLODIPine [Norvasc] 5 mg PO DAILY 04/10/23 [History] Aspirin 81 mg PO DAILY 30 Days #30 tab 04/12/23 [Rx] Atorvastatin [Lipitor] 80 mg PO HS #30 tab 04/12/23 [Rx] Calcium Carbonate/Vitamin D3 [Calcium 600 mg-D3 20 mcg (800 unit)] 2 each PO DAILY 06/08/23 [History] Loratadine 10 mg PO DAILY 06/08/23 [History] Magnesium Oxide [Magnesium] 500 mg PO DAILY 06/08/23 [History] Clopidogrel [Plavix] 75 mg PO DAILY #90 tablet 06/13/23 [Rx] Follow up Appointment(s)/Referral(s): Tam Delcid MD [STAFF PHYSICIAN] - 1 Week
--- NOTE | 2023-06-13 14:36 | CA ---
Transthoracic Echo Report Name: Dorie Joseph Age: 68 Gender: F : 1955 Exam Date: 06/13/2023 07:59 Exam Location: [facility] Ht (in): 61 Wt (lb): 164 Ordering Physician: Rian Rios MD ([id number]) Attending/Referring Phys: Gabriel Modi;[id number] Program Technician Mela Bowling RDCS Procedure CPT: Indications: Post ASD/PFO Insertion Cardiac Hx: Technical Quality: Contrast 1: Total Dose (mL): Contrast 2: Total Dose (mL): MEASUREMENTS (Male / Female) Normal Values 2D ECHO LV Diastolic Diameter PLAX 3.1 cm 4.2 - 5.9 / 3.9 - 5.3 cm LV Systolic Diameter PLAX 1.7 cm IVS Diastolic Thickness 1.2 cm 0.6 - 1.0 / 0.6 - 0.9 cm LVPW Diastolic Thickness 1.6 cm 0.6 - 1.0 / 0.6 - 0.9 cm LV Relative Wall Thickness 0.9 DOPPLER AV Peak Velocity 154.1 cm/s AV Peak Gradient 9.5 mmHg LVOT Peak Velocity 104.9 cm/s LVOT Peak Gradient 4.4 mmHg MV Peak Velocity 61.5 cm/s MV Peak Gradient 1.5 mmHg FINDINGS Left Ventricle Mildly increased left ventricular wall thickness. Left ventricular cavity size normal. Normal left ventricular systolic function with no obvious regional wall motion abnormalities. Left ventricular ejection fraction is estimated at 55-60 %. Right Ventricle Normal right ventricular size and function. Right Atrium Normal right atrial size. Left Atrium Normal left atrial size. PFO closure device noted in place. Mitral Valve Structurally normal mitral valve. Mild mitral annular calcification. Trace mitral regurgitation. Aortic Valve Trileaflet aortic valve. No aortic valve stenosis or regurgitation. Tricuspid Valve Structurally normal tricuspid valve. Mild tricuspid regurgitation. Pulmonic Valve Trace pulmonic regurgitation. Pericardium No pericardial effusion. Aorta Normal size aortic root and proximal ascending aorta. CONCLUSIONS 1. Normal left ventricular size and systolic function 2. Closure device at the atrial septum with no clear evidence of shunting 3. Mild tricuspid and trace mitral regurgitation Previewed by: Dr. Aurora Anton MD (Electronically Signed) Final Date: 13 June 2023 14:35
[2023-06-13] MEDS ORDERED: ATORVASTATIN 80 MG TAB PO SCH (21:00)
== END 2023-06-13 13:32 ==
LOC: CATHCVL 07:51 → 3SCARD 10:20 → CATHCVL 06-13 13:32
PROVIDERS: ATTEND Internal Medicine Interventional Cardiology
DX: Q21.10 Atrial septal defect, unspecified (principal); I10 Essential (primary) hypertension; E78.5 Hyperlipidemia, unspecified; Z82.49 Family history of ischemic heart disease and other diseases of the circulatory system; Z79.899 Other long term (current) drug therapy; Z79.82 Long term (current) use of aspirin
CPT/HCPCS: 93306; 86900; 86901; 86850; 71046; J2250; J0690; J2001; J1644; 93580; 93662

== ENCOUNTER 2023-10-26 22:17 | Inpatient (IN) | payer MEDICARE ==
[2023-10-26] MEDS: HYDROmorphone 1 MG/ML 1 ML SYRINGE IVP STA (22:49)
[2023-10-26] MEDS: KETOROLAC 15 MG/ML 1 ML VIAL IVP STA (23:43)
[2023-10-26] MEDS: MORPHINE SULFATE 4 MG/ML SYRINGE IVP STA (23:45)
[2023-10-26] MEDS: ACETAMINOPHEN IV (For NPO) 1,000 MG in EMPTY BAG 1 BAG IVPB ONE (23:50)
--- NOTE | 2023-10-27 00:32 | XR ---
EXAM: XR Right Forearm, 2 Views CLINICAL HISTORY: ITS.REASON XR Reason: pain TECHNIQUE: Frontal and lateral views of the right forearm. COMPARISON: Earlier same day. FINDINGS: Bones/joints: Displaced, comminuted fracture of the RIGHT distal radial diametaphysis, located 6.5 cm proximal to the radial styloid. Displaced ulnar diametaphysis fracture which is displaced by 1 cm. No dislocation. Soft tissues: Unremarkable. IMPRESSION: 1. Displaced, comminuted fracture of the RIGHT distal radial diametaphysis, located 6.5 cm proximal to the radial styloid. 2. Displaced ulnar diametaphysis fracture which is displaced by 1 cm. Alignment is improving when compared to previous exam.
[2023-10-27] MEDS: LORazepam 2 MG/ML INJ IV STA (00:33)
[2023-10-27] MEDS ORDERED: NALOXONE 0.4 MG/ML 1 ML VIAL IV PRN (00:41)
[2023-10-27] MEDS ORDERED: ACETAMINOPHEN TAB 325 MG TAB PO PRN (00:41)
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
[2023-10-27 01:49] LABS: ALT 25 U/L (4-34); AST 53 U/L (14-36); African American GFR (CKD) >90 (>60 ml/min/1.73 sqM); Albumin 4.1 g/dL (3.5-5.0); Alkaline Phosphatase 126 U/L (38-126); Anion Gap 7 mmol/L; Blood Urea Nitrogen 15 mg/dL (7-17); Calcium 9.1 mg/dL (8.4-10.2); Carbon Dioxide 22 mmol/L (22-30); Chloride 103 mmol/L (98-107); Glucose 111 mg/dL (74-99); Magnesium 2.3 mg/dL (1.6-2.3); Non-African American GFR(CKD) 82 (>60 ml/min/1.73 sqM); Phosphorus 5.1 mg/dL (2.5-4.5); Sodium 132 mmol/L (137-145); Total Bilirubin 0.5 mg/dL (0.2-1.3); Total Protein 6.9 g/dL (6.3-8.2)
[2023-10-27] MEDS: ONDANSETRON 4 MG/2 ML VIAL IVP STA (02:16)
[2023-10-27] MEDS: SODIUM CHLORIDE 0.9% 1,000 ML IV SCH (02:18)
[2023-10-27] MEDS: SODIUM CHLORIDE 0.9% 1,000 ML IV STA ×2 (02:32→02:33)
--- NOTE | 2023-10-27 03:57 | XR ---
EXAM: XR Chest, 1 View CLINICAL HISTORY: ITS.REASON XR Reason: fall TECHNIQUE: Frontal view of the chest. COMPARISON: Comparison made to prior chest x-ray from June 13, 2023. FINDINGS: Lungs: Mild to moderate peribronchial thickening of the central and lower lobe bronchi. No consolidation. Pleural space: Unremarkable. No pneumothorax. Heart: Unremarkable. No cardiomegaly. Mediastinum: Unremarkable. Normal mediastinal contour. Bones/joints: Remote fracture deformities in the thoracic spine with increased thoracic kyphosis. No acute fracture. IMPRESSION: No evidence of acute thoracic injury. If there is continued clinical concern, a CT scan may be of benefit for further evaluation.
--- NOTE | 2023-10-27 04:48 | XR ---
EXAMINATION TYPE: XR forearm RT DATE OF EXAM: 10/26/2023 CLINICAL HISTORY: Open fracture distal radius and ulna after tripping injury TECHNIQUE: Two views of the right forearm are obtained. COMPARISON: None. FINDINGS: Overlying blanket material is seen making evaluation suboptimal. There are acute comminuted displaced fracture through the distal diaphysis of the right radius and ulna. There are several smal l fracture fragments. There is approximately 1 cm overlap with radial and dorsal angulation of distal fracture fragments.. IMPRESSION: As above.
[2023-10-27 06:06] LABS: Basophils # (A) 0.1 k/uL (0-0.2); Basophils % (A) 1 %; Eosinophils # (A) 0.1 k/uL (0-0.7); Eosinophils % (A) 1 %; HCT 33.6 % (34.0-46.0); HGB 10.7 gm/dL (11.4-16.0); Lymphocytes # (A) 1.2 k/uL (1.0-4.8); Lymphocytes % (A) 11 %; MCH 25.7 pg (25.0-35.0); MCHC 31.9 g/dL (31.0-37.0); MCV 80.7 fL (80.0-100.0); Mean Platelet Volume 7.3; Monocytes # (A) 0.7 k/uL (0-1.0); Monocytes % (A) 6 %; Neutrophils # (A) 8.3 k/uL (1.3-7.7); Neutrophils % (A) 79 %; Platelet Count 258 k/uL (150-450); RBC 4.16 m/uL (3.80-5.40); RDW 15.5 % (11.5-15.5); WBC 10.6 k/uL (3.8-10.6)
[2023-10-27 06:16] LABS: INR 0.9 (<1.2); Partial Thromboplastin Time 24.6 sec (22.0-30.0); Prothrombin Time 10.5 sec (10.0-12.5)
[2023-10-27] MEDS: amLODIPine 5 MG TAB PO SCH (09:35)
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
[2023-10-27] MEDS: MORPHINE SULFATE 4 MG/ML SYRINGE IV PRN (12:28)
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
[2023-10-27] MEDS: ONDANSETRON 4 MG/2 ML VIAL IVP ONE ×2 (13:35→16:11)
[2023-10-27] MEDS: PANTOPRAZOLE 40 MG/10 ML VIAL IVP SCH (13:37)
[2023-10-27] MEDS: DEXAMETHASONE SOD PHOSPHATE 4 MG/ML 1 ML VIAL IV ONE (13:39)
[2023-10-27] MEDS: LACTATED RINGERS 1,000 ML IV SCH (14:03)
[2023-10-27] MEDS: LORazepam 2 MG/ML INJ IV ONE (14:53)
[2023-10-27] MEDS: LACTATED RINGERS 1,000 ML IV ONE ×2 (15:15→17:39)
[2023-10-27] MEDS: MIDAZOLAM 2 MG/2 ML VIAL IVP ONE (16:12)
[2023-10-27] MEDS ORDERED: PROPOFOL 10 MG/ML 20 ML VIAL IV ONE (16:21)
[2023-10-27] MEDS ORDERED: SODIUM CHLORIDE 0.9% 100 ML BAG ONE (16:21)
[2023-10-27] MEDS ORDERED: HYDROmorphone (PF) 1 MG/ML ONE (16:21)
[2023-10-27] MEDS ORDERED: fentaNYL (PF) 50 MCG/ML 2 ML AMP ONE (16:21)
[2023-10-27] MEDS ORDERED: LIDOCAINE 1% INJ 10MG/ML (20 ML MDV) ONE (16:21)
[2023-10-27] MEDS ORDERED: DEXAMETHASONE SOD PHOSPHATE 4 MG/ML 1 ML VIAL ONE (16:21)
[2023-10-27] MEDS ORDERED: ROPIVACAINE 5 MG/ML 30 ML VIAL ONE (16:21)
[2023-10-27] MEDS ORDERED: ceFAZolin 1,000 MG VIAL ONE (16:21)
--- NOTE | 2023-10-27 16:24 | P.ANPRN ---
Procedure Note - Anesthesia - Nerve Block Performed Right Supraclavicular Single Time Out Performed: Yes (8812) Date of Procedure: 10/27/23 Procedure Start Time: 16:15 Procedure Stop Time: 16:19 Location of Patient: PreOp Indication: Acute Post-Operative Pain, Requested by Surgeon Sedation Type: Sedate with meaningful contact maintained Preparation: Sterile Prep, Sterile Dressing Position: Sitting Catheter: None Needle Types: [place] Needle Gauge: Other (see comment) (22G) Ultrasound used to visualize needle placement: Yes Ultrasound used to observe medication spread: Yes Injectate: 0.5% Ropivacaine (see comment for volume) Blood Aspirated: No Pain Paresthesia on Injection Noted: No Resistance on Injection: Normal Image Stored and Saved: Yes Events: Uneventful and Well Tolerated (21 mL of block solution containing 20 ML of 0.5% ropivacaine mixed with 4 mg of dexamethasone)
[2023-10-27] MEDS: SODIUM CHLORIDE 0.9% 100 ML with ceFAZolin 2,000 MG IV ONE (16:35)
[2023-10-27] MEDS: ONDANSETRON 4 MG/2 ML VIAL IVP PRN (20:31)
[2023-10-27] MEDS: ATORVASTATIN 80 MG TAB PO SCH (22:30)
[2023-10-28 02:47] VITALS: RESP 20
[2023-10-28] MEDS ORDERED: HYDROmorphone 0.5 MG/0.5 ML SYRINGE IVP PRN (07:00)
[2023-10-28] MEDS: HYDROcodone/APAP 10-325MG 1 EACH TAB PO PRN (09:38)
--- NOTE | 2023-10-28 10:27 | P.DS ---
Providers Date of admission: 10/27/23 00:51 Expected date of discharge: 10/28/23 Attending physician: Isael Castaneda Consults: 10/27/23 00:41 Consult Physician Routine Consulting Provider: Allen Torrez Consult Reason/Comments: medManagement Do you want consulting provider notified?: Yes Primary care physician: Kalpana Kat - Discharge Diagnosis(es) (1) Fall Current Visit: Yes Status: Acute (2) Fracture of right distal radius Current Visit: Yes Status: Acute (3) Open forearm fracture Current Visit: Yes Status: Acute (4) Right distal ulnar fracture Current Visit: Yes Status: Acute Hospital Course: The patient is a very pleasant 68 y/o female with a medical history significant for having a recent stroke on Plavix who was transferred from an outside facility with an open right distal radius and ulna fracture. According to the patient and her family she tripped over her dog yesterday afternoon. She was brought to her local emergency room department because of her history of stroke and was found to have an open distal third radius and ulna fracture. She was transferred to our facility for definitive care. She underwent an ORIF of the right distal radius and ulna on 10/27/[address] Santizo. On first day post op, the patient's pain is controlled. She is able to move her fingers but the block is still in effect. The splint is clean and dry. The forearm is soft. Neurological and circulatory status is intact. The patient is orthopedically stable for discharge home today. Patient Condition at Discharge: Good Plan - Discharge Summary Discharge Rx Participant: Yes New Discharge Prescriptions: New oxyCODONE HCL/ACETAMINOPHEN [Percocet 5-325 mg] 1 tab PO Q6HR PRN #5 tab PRN Reason: Severe Breakthrough Pain Cephalexin [Keflex] 500 mg PO Q8HR #21 cap No Action Omeprazole 20 mg PO BID lisinopriL [Lisinopril] 10 mg PO DAILY Venlafaxine HCl [Venlafaxine HCl ER] 150 mg PO DAILY methocarbamoL [Robaxin-750] 750 mg PO TID HYDROcodone/APAP 10-325MG [[place] 10-325] 1 tab PO QID PRN PRN Reason: Pain amLODIPine [Norvasc] 5 mg PO DAILY Cyanocobalamin (Vitamin B-12) [Vitamin B-12] 5,000 mcg PO DAILY #0 Aspirin 81 mg PO DAILY 30 Days #30 tab Diclofenac Sodium [Voltaren] 75 mg PO BID PRN PRN Reason: Pain Cyclobenzaprine [Flexeril] 10 mg PO HS Atorvastatin [Lipitor] 80 mg PO HS #30 tab Magnesium Oxide [Magnesium] 500 mg PO DAILY Loratadine 10 mg PO DAILY Clopidogrel [Plavix] 75 mg PO DAILY #90 tablet Gabapentin 600 mg PO TID Furosemide [Lasix] 20 mg PO DAILY Cholecalciferol [Vitamin D3 (25 Mcg = 1000 Iu)] 25 mcg PO DAILY Montelukast [Singulair] 10 mg PO HS Discharge Medication List Omeprazole 20 mg PO BID 09/04/14 [History] Venlafaxine HCl [Venlafaxine HCl ER] 150 mg PO DAILY 09/04/14 [History] lisinopriL [Lisinopril] 10 mg PO DAILY 09/04/14 [History] HYDROcodone/APAP 10-325MG [[place] 10-325] 1 tab PO QID PRN 05/07/18 [History] methocarbamoL [Robaxin-750] 750 mg PO TID 05/07/18 [History] Cyanocobalamin (Vitamin B-12) [Vitamin B-12] 5,000 mcg PO DAILY #0 04/10/23 [History] Cyclobenzaprine [Flexeril] 10 mg PO HS 04/10/23 [History] amLODIPine [Norvasc] 5 mg PO DAILY 04/10/23 [History] Aspirin 81 mg PO DAILY 30 Days #30 tab 04/12/23 [Rx] Atorvastatin [Lipitor] 80 mg PO HS #30 tab 04/12/23 [Rx] Loratadine 10 mg PO DAILY 06/08/23 [History] Magnesium Oxide [Magnesium] 500 mg PO DAILY 06/08/23 [History] Clopidogrel [Plavix] 75 mg PO DAILY #90 tablet 06/13/23 [Rx] Cholecalciferol [Vitamin D3 (25 Mcg = 1000 Iu)] 25 mcg PO DAILY 10/27/23 [History] Diclofenac Sodium [Voltaren] 75 mg PO BID PRN 10/27/23 [History] Furosemide [Lasix] 20 mg PO DAILY 10/27/23 [History] Gabapentin 600 mg PO TID 10/27/23 [History] Montelukast [Singulair] 10 mg PO HS 10/27/23 [History] Cephalexin [Keflex] 500 mg PO Q8HR #21 cap 10/28/23 [Rx] oxyCODONE HCL/ACETAMINOPHEN [Percocet 5-325 mg] 1 tab PO Q6HR PRN #5 tab 10/28/23 [Rx] Follow up Appointment(s)/Referral(s): Rhonda Thomas NPC [Nurse Practitioner] - 11/09/23 9:45 am Allen Torrez MD [STAFF PHYSICIAN] - 1 Week Activity/Diet/Wound Care/Special Instructions: Keep splint and dressing clean and dry Elevate and ice forearm Keep moving fingers Follow up with Rhonda Thomas NP in 10 days Call [facility] with any questions or concerns, . IS q2h X 10 While awake Discharge Disposition: HOME SELF-CARE
--- NOTE | 2023-10-28 10:46 | P.PN ---
Subjective Progress Note Date: 10/28/23 - Chief Complaint Open Right distal radius and ulnar fracture,status post fall - History of Present Illness This is a pleasant 68-year-old female with past medical history significant for recent stroke stroke 04/10/2023 , (transferred from outside facility), asthma, fibromyalgia, gastroesophageal reflux disease, osteoarthritis, hyperlipidemia, hypertension, anxiety and multiple other medical issues presented to the ER status post fall sustaining open right distal radius and ulna fracture. Patient states she tripped over her dog, landed on a hardwood floor. Currently reports pain is controlled on current pain management. Denies chest pain, palpitations or shortness of breath. Denies lightheadedness dizziness or focal deficits. Evaluated by orthopedic surgery, radiology studies reviewed and patient is scheduled for surgical repair. Chest x-ray reporting no evidence of acute thoracic injury. Afebrile, normal WBC. Hemoglobin 10.7, platelets 258, sodium 132, potassium 5, renal function stable. Maintaining O2 sats in the 90s on room air. 10/28/2023 significant clinical improvement. Reports pain is controlled. Denies nausea and vomiting. Passing flatus. Denies chest pain, palpitations or shortness of breath. Reports tolerating ambulation, denies lightheadedness, dizziness or focal deficits. Denies chest pain, palpitations or shortness of breath. Objective - Vital Signs Vital signs: Vital Signs Temp 98.7 F 10/28/23 07:05 Pulse 86 10/28/23 07:05 Resp 20 10/28/23 07:05 BP 102/62 10/28/23 07:05 Pulse Ox 95 10/28/23 07:05 FiO2 Intake & Output 10/27/23 10/28/23 10/28/23 18:59 06:59 18:59 Intake Total 1300 0 Output Total 50 Balance 1300 -50 Weight 73.482 kg Intake: IV 1300 0 Output: Estimated Blood Loss 50 Other: Voiding Method Bedpan # Voids 3 - Exam GENERAL: alert and oriented x3, sitting up in bed,NAD. HEENT: Normocephalic, Pupils are round and equal,No scleral icterus. No conjunctival pallor. CARDIOVASCULAR: S1 and S2 present. No murmurs, rubs, or gallops. PULMONARY: Unlabored , equal air entry ,CTA. ABDOMEN: Soft, nontender, nondistended, normoactive bowel sounds. No guarding, no rigidity. EXTREMITIES: Right arm splint, Xavi wrapped, positive passive range of motion of fingers. Bilateral lower extremities No cyanosis, clubbing, or pedal edema. NEUROLOGICAL: Gross neurological examination did not reveal any focal deficits. SKIN: No rashes. warm and dry. - Labs CBC & Chem 7: 10/27/23 05:07 10/27/23 01:29 Assessment and Plan Assessment: Open Right distal radius and ulnar fracture,status post fall, status post incision and drainage open reduction internal fixation right radius and ulnar fracture. Postoperative atelectasis, expected outcome Recent CVA, 04/03 Chronic asthma, stable Hypertension Hyperlipidemia History of osteoarthritis Hypothyroidism Plan: Continue on current medication regime ,monitoring and symptomatic treatment. Discharge planning in progress as per primary .DVT prophylaxis, pain management as per primary. Continue to maintain aggressive pulmonary toileting with incentive spirometer reinforced. Follow up with PCP, Dr. Allen Torrez in 1 week. The impression and plan of care has been dictated as directed. : I performed a history and examination of this patient, discussed the same with the dictator. I agree with the dictator's note ,documented as a scribe. Any a dditional findings or plans will be noted.
[2023-10-28 14:11] VITALS: BP 128/65; PULSE 85; TEMP 97.8
--- NOTE | 2023-11-01 18:02 | P.OP ---
Date of Procedure: 10/27/23 Preoperative Diagnosis: Right radius and ulna shaft fracture, open Postoperative Diagnosis: same Procedure(s) Performed: Right radius debridement of open fracture, Right radius open reduction internal fixation, Right ulna debridement of open fracture, Right ulnar open reduction internal fixation Implants: Skeletal dynamics, 8 hold geminus, 6 hold 3.5 ulnar shaft plate Anesthesia: [place] PET[place] Surgeon: Monika Santizo Customer Management Specialist #1: Isael Castaneda Estimated Blood Loss (ml): 20 Pathology: none sent Condition: stable Disposition: PACU Indications for Procedure: Patient tripped over her dog on 10/26/23. She sustained an open both bone forearm fracture. She was treated with antibiotics and we will proceed with I&D and ORIF. Operative Findings: communited radial shaft fracture with remote distal radius malunion, short oblique ulnar shaft fracture Description of Procedure: he patient, operative extremity, and procedure were identified in the preop holding area. After informed consent was obtained, the anesthesia team performed a regional block. The patient was then brought back to the operating room where the extremity was prepped and draped in normal sterile fashion with a tourniquet on the patients brachium. A formal timeout was performed and the tourniquet was inflated to 250mmHg. There were two wounds along the volar surface of the forearm coordinating with the radius and ulnar fractures. These were a combined 1cm in length. There was no gross contamination. The wounds were cleaned with nonexcisional debridement using a curette and a wet raytech sponge. The surface wound was cleaned and the curette was inserted to debride the underlying subcutaneous tissue. A longitudinal incision was made over the volar radial aspect of the forearm for a Atif approach. Distally, dissection was taken down to the flexor carpi radialis tendon. This was mobilized ulnarly and the underlying forearm fascia was incised. The branch of the radial artery was protected while the flexor tendons and muscles were swept aside to access the pronator quadratus muscle. This was released sharply off of the radius to reveal the radius. The dissection was then extended proximally. The radial artery and radial sensory nerve were identified and protected throughout the case. A jha elevator was used to clear the radius and swept proximally to lift the flexor pollicis longus overlying the fracture. The fracture ends were then carefully cleaned with a curette and copious irrigation. There was significant comminution. The loose pieces were cleaned with normal saline and replaced. An 8 hole plate was selected to allow for adequate fixation. The plate was then provisional fixed distally with k wires and a nonlocking screw. A provisional reduction was performed and a nonlocking screws was placed proximally. Attention was then turned to the ulna. A longitudinal incision was made between the FCU and ECU. Dissection was carried down to the ulna and the periosteum was incised to access the fracture. The fracture ends were carefully cleaned with a curette and irrigation. This was also comminuted with a butterfly fragment. The incision was extended distally with care taken to protect the cutaneous nerve. The fracture was reduced and a 3.5 plate was used to bridge the fracture. The remainder of the radius plate was then fixated with screws of the appropriate length. Final fluoroscopic images showed acceptable alignment. There was slight extension of the distal fragment given the previous malunion of a distal radius fracture and the contour of the plate. There was at least 50% bony contact at the fracture site. There was full pronosupination with PROM testing. The wound was copiously irrigated with normal saline. tourniquet was let down, hemostasis achieved, and wounds were closed in a layered fashion with vycril, monocryl, and skin glue. Wounds were dressed and a volar splint was applied.
--- NOTE | 2024-01-01 11:35 | CDI ---
Documentation Clarification Form Date: 01/01/2024 11:00:14 AM From: Daniela Hernandez RN, CCDS Email: [email or web address] Admit Date: 10/27/2023 12:51:00 AM Patient Name: Dorie Joseph Visit Number: [id number] Discharge Date: 10/28/2023 04:24:00 PM ATTENTION: The Clinical Documentation Specialists (CDI) and [facility] Coding Staff appreciate your assistance in clarifying documentation. Please respond to the clarification below the line at the bottom and electronically sign. The CDI & [facility] Coding staff will review the response and follow-up if needed. Please note: Queries are made part of the Legal Health Record. If you have any questions, please contact the author of this message via ITS. Dr. Allen Torrez An open fracture of the right radius and ulna is documented in the progress notes. Additional clarification regarding the fracture is requested. Patient history/risk factors: recent stroke, severe osteoarthritis, osteopenia, HTN and HLD. Presented s/p fall, sustaining an open right distal radius and ulna fracture. S/P ORIF and debridement of fractures. Clinical Indicators: ED: "patient is here in the ER for evaluation of fall with fracture of the right distal radius and ulna. 10/27 right forearm xray: Displaced, comminuted fracture of the right distal radial diametaphysis. Displaced ulnar diametaphysis fracture. 10/27 Ortho H&P: "X-rays of the right forearm show a distal third radius and ulna fracture, diffuse osteopenia, and diffuse arthritis throughout the hand and wrist. Open right distal third radius and ulna fracture. Severe osteopenia." 10/27 IM consult: "Patient states she tripped over her dog, landed on a hardwood floor. Osteopenia. History of osteoarthritis. Open Right distal radius and ulnar fracture, status post fall." Treatment: ORIF of right distal radius and ulna; home on Vitamin B12 and Vitamin D3 Please further clarify the fracture [ X ] Fracture is secondary to osteopenia and severe osteoarthritis [ X ] Fracture is secondary to trauma from fall [ ] Other (please specify): [ ] Unable to determine MTDD
--- NOTE | 2024-01-01 11:46 | CDI ---
Documentation Clarification Form Date: 01/01/2024 11:36:18 AM From: Daniela Hernandez RN, CCDS Email: [email or web address] Admit Date: 10/27/2023 12:51:00 AM Patient Name: Dorie Joseph Visit Number: [id number] Discharge Date: 10/28/2023 04:24:00 PM ATTENTION: The Clinical Documentation Specialists (CDI) and [facility] Coding Staff appreciate your assistance in clarifying documentation. Please respond to the clarification below the line at the bottom and electronically sign. The CDI & [facility] Coding staff will review the response and follow-up if needed. Please note: Queries are made part of the Legal Health Record. If you have any questions, please contact the author of this message via ITS. Dr. Allen Torrez Postoperative atelectasis is documented in the 10/28 progress note which may lack sufficient clinical evidence/support in the medical record. Additional clarification is requested. History/Risk Factors: recent stroke, severe osteoarthritis, osteopenia, HTN and HLD. Presented s/p fall, sustaining an open right distal radius and ulna fracture. S/P ORIF and debridement of fractures. Clinical Indicators: 10/27 CXR: Lungs: Mild to moderate peribronchial thickening of the central and lower lobe bronchi. No consolidation. Pleural space: Unremarkable. No pneumothorax. Heart: Unremarkable. No cardiomegaly. 10/28 IM: "Postoperative atelectasis, expected outcome." 10/27 3:06 am pox 88% Treatment: aggressive pulmonary toilet and incentive spirometry; O2 2LNC Please clarify if Postoperative atelectasis, expected outcome is a valid diagnosis? [ ] Yes, Postoperative atelectasis, expected outcome is present as evidence by (additional clinical support): [ X ] No, Postoperative atelectasis, expected outcome is ruled out [ ] Other (please specify diagnosis) [ ] Unable to determine MTDD
== END 2023-10-28 16:24 | disposition home or self-care (01) | DRG 510 ==
LOC: EC 22:17 → 4SSUR 10-27 00:51
PROVIDERS: ADMIT Orthopaedic Surgery; ATTEND Orthopaedic Surgery
PROC: 0PSK04Z Reposition Right Ulna with Internal Fixation Device, Open Approach (ICD-10-PCS; principal; 2023-10-27 08:35)
PROC: 0PSH04Z Reposition Right Radius with Internal Fixation Device, Open Approach (ICD-10-PCS; principal; 2023-10-27 08:35)
DX: M84.633 Pathological fracture in other disease, right radius (principal); S52.201B Unspecified fracture of shaft of right ulna, initial encounter for open fracture type I or II; S52.301B Unspecified fracture of shaft of right radius, initial encounter for open fracture type I or II; W01.0XXA Fall on same level from slipping, tripping and stumbling without subsequent striking against object, initial encounter; K21.9 Gastro-esophageal reflux disease without esophagitis; M79.7 Fibromyalgia; I83.90 Asymptomatic varicose veins of unspecified lower extremity; E03.9 Hypothyroidism, unspecified; E78.5 Hyperlipidemia, unspecified; F41.9 Anxiety disorder, unspecified; I10 Essential (primary) hypertension; J45.909 Unspecified asthma, uncomplicated; M85.80 Other specified disorders of bone density and structure, unspecified site; Z79.02 Long term (current) use of antithrombotics/antiplatelets; I69.398 Other sequelae of cerebral infarction; H53.9 Unspecified visual disturbance; Z79.82 Long term (current) use of aspirin; Z79.899 Other long term (current) drug therapy; Z96.651 Presence of right artificial knee joint; Z82.49 Family history of ischemic heart disease and other diseases of the circulatory system; Z88.0 Allergy status to penicillin
CPT/HCPCS: 25605; 71045; 80053; 83735; 84100; 85025; 85610; 85730; 96361; 96374; 96375; 96376; 99285

== ENCOUNTER → 2024-07-25 | Outpatient (CLI) | payer MEDICARE ==
--- NOTE | 2024-07-25 12:35 | MR ---
EXAMINATION TYPE: MR brain wo/w con DATE OF EXAM: 07/25/2024 12:25 PM CLINICAL INDICATION: Female, 69 years old with history of R25.1 TREMOR, UNSPECIFIED, headaches COMPARISON: 04/10/2023 TECHNIQUE: Multi planar, multi sequence imaging was performed through the brain including: T1, T2, In version recovery, susceptibility weighted imaging and gradient echo imaging and Diffusion weighted im aging. The patient was then given intravenous contrast and multi planar, T1 fat-saturation images wer e obtained. IV Contrast: 6.5ml cc Gadavist FINDINGS: Remote injury to the right occipital lobe with encephalomalacia. Mild cerebral atrophy with proportio nal dilation of ventricular system. Diffusion-weighted imaging shows no evidence of restricted diffu salena to suggest acute/subacute infarct. Intracranial arterial flow voids are maintained. Midline stru ctures show no abnormality. Scattered foci of high T2 signal intensity are seen within the periventri cular white matter. Blooming artifact on susceptibility weighted imaging in the right occipital lobe cortex possibly from the remote injury given encephalomalacia in this region.. After administration o f gadolinium, no abnormal enhancement is seen. The bone marrow signal is within normal limits. Paranasal sinuses and mastoid air cells: No significant paranasal sinus disease. Visualized orbits: Bilateral aphakia IMPRESSION: 1. No evidence of intracranial mass, acute/subacute infarct, or abnormal enhancement. 2. Remote injuries to the right occipital lobe with hemosiderin deposition suggesting prior hemorrhag e and/or calcification. 3. Nonspecific white matter changes, likely related to small vessel ischemic disease. [facility], , 07/25/2024 12:33 PM
== END ==
LOC: RADMRIMAIN 11:21
PROVIDERS: ATTEND Family Medicine
DX: R25.1 Tremor, unspecified
CPT/HCPCS: 70553

== ENCOUNTER → 2024-08-31 | Outpatient (CLI) | payer MEDICARE ==
--- NOTE | 2024-09-02 08:32 | MM ---
Reason for Exam: Screening (asymptomatic). Last mammogram was performed 1 year(s) and 7 month(s) ago. Patient History: Menarche at age 12. First Full-Term at age 20. Left ovary removed at age 44. Right ovary removed at age 44. Hysterectomy at age 44. Postmenopausal. Patient used Estrogen for 2 years. 11/08/2009, Benign Core Biopsy on the right side. Risk Values: Linnea 5 year model risk: 1.8%. NCI Lifetime model risk: 5.3%. Prior Study Comparison: 07/12/2014 Bilateral Screening Mammogram, [facility]. 10/26/2017 Bilateral Screening Mammogram, [facility]. 01/27/2023 Bilateral MG 3D screening mammo w/cad, [facility]. Tissue Density: The breasts are heterogeneously dense, which may obscure small masses. Findings: Analyzed By CAD. There is no suspicious group of microcalcifications or new suspicious mass in either breast. Overall Assessment: Negative, BI-RAD 1 Management: Screening Mammogram of both breasts in 1 year. . Patient should continue monthly self-breast exams. A clinical breast exam by your physician is recommended on an annual basis. This exam should not preclude additional follow-up of suspicious palpable abnormalities. Note on Linnea scores and lifetime risk: 1. A Linnea score greater than 3% is considered moderate risk. If this is the case, consider specialist referral to assess eligibility for a risk reducing agent. 2. If overall lifetime risk for the development of breast cancer is 20% or higher, the patient may qualify for future screening with alternating mammogram and breast MRI. [facility], , 09/02/2024 8:29 AM. Electronically signed and approved by: Sam Giron M.D. Radiologis
== END | disposition home or self-care (01) ==
LOC: RADMAMWWP 12:29
PROVIDERS: ATTEND Family Medicine
DX: Z12.31 Encounter for screening mammogram for malignant neoplasm of breast (principal); Z78.0 Asymptomatic menopausal state; R92.333 Mammographic heterogeneous density, bilateral breasts
CPT/HCPCS: 77063; 77067